=== PATIENT | male | born 1990 | race Two or more races ===

== ENCOUNTER 2023-05-17 14:54 | Emergency (ER) | payer OTHER ==
[~2023-05-17] VITALS: Ht 180.3 cm; Wt 73.1 kg
[2023-05-17] MEDS ORDERED: TETANUS-DIPTH-ACEL PERTUSSIS 0.5ML SYR Tdap IM ONE (16:00)
[2023-05-17] MEDS ORDERED: LIDOCAINE 1% HCL (LOCAL ANESTH.) INJ 20ML MDV ID ONE (16:00)
[2023-05-17] MEDS ORDERED: AMOXICILLIN/CLAVUL 875 MG TAB PO ONE (16:00)
[2023-05-17] MEDS ORDERED: HYDROcodone-ACET 5/325MG TAB PO ONE (18:30)
[2023-05-17] MEDS ORDERED: NEOMYCIN-BACITRACIN-POLYM UNITDOSE PKG TOP OINT TOP ONE (18:30)
[2023-05-17] MEDS ORDERED: AUG875T PO (18:34)
[2023-05-17] MEDS ORDERED: IBU600T PO (18:34)
[2023-05-17] MEDS ORDERED: MUPI2OIN2 EX (18:34)
[2023-05-17 18:46] VITALS: BP 114/69
== END 2023-05-17 18:54 | disposition home or self-care (01) ==
LOC: ER 14:54
DX: S81.811A Laceration without foreign body, right lower leg, initial encounter (principal); W54.0XXA Bitten by dog, initial encounter; Y93.89 Activity, other specified; Y92.89 Other specified places as the place of occurrence of the external cause; Y99.8 Other external cause status
CPT/HCPCS: 12004; 73590; 90471; 90715; 99283; J2001